=== PATIENT | female | born 1955 | race Caucasian/White ===

== ENCOUNTER 2019-05-23 18:01 | Emergency (ER) | payer MEDICAID ==
--- NOTE | 2019-05-23 18:29 | EDM.PDOC ---
ED HPI GENERAL MEDICAL PROBLEM - General Chief Complaint: Back Pain or Injury Stated Complaint: BACK PAIN Time Seen by Provider: 05/23/19 18:12 - History of Present Illness INITIAL COMMENTS - FREE TEXT/NARRATIVE: HISTORY AND PHYSICAL: History of present illness: Asians a 63-year-old female history chronic back pain presents for medication refill she is requesting gabapentin and hydrocodone. There's been no numbness weakness incontinence or retention of bowel or bladder other complaints Review of systems: As per history of present illness and below otherwise all systems reviewed and negative. Past medical history: As per history of present illness and as reviewed below otherwise noncontributory. Surgical history: As per history of present illness and as reviewed below otherwise noncontributory. Social history: No reported history of drug or alcohol abuse. Family history: As per history of present illness and as reviewed below otherwise noncontributory. Physical exam: HEENT: Atraumatic, normocephalic, pupils reactive, negative for conjunctival pallor or scleral icterus, mucous membranes moist, throat clear, neck supple, nontender, trachea midline. Lungs: Clear to auscultation, breath sounds equal bilaterally, chest nontender. Heart: S1S2, regular, negative for clicks, rubs, or JVD. Abdomen: Soft, nondistended, nontender. Negative for masses or hepatosplenomegaly. Negative for costovertebral tenderness. Pelvis: Stable nontender. Genitourinary: Deferred. Rectal: Deferred. Extremities: Atraumatic, negative for cords or calf pain. Neurovascular unremarkable. Neuro: Awake, alert, oriented. Cranial nerves II through XII unremarkable. Cerebellum unremarkable. Motor and sensory unremarkable throughout. Exam nonfocal. Back patient is some mild paravertebral tenderness at the level lumbar spine no vertebral body or point tenderness she also has tenderness over the sciatic notch on the right. She can stand on her toes back on her heels motor sensory and deep tendon reflexes are normal Diagnostics: None Therapeutics: None Impression: #1 chronic back pain #2 sciatica Definitive disposition and diagnosis as appropriate pending reevaluation and review of above. low back Pain Score (Numeric/FACES): 8 - Related Data Allergies Allergy/AdvReac Type Severity Reaction Status Date / Time epinephrine Allergy Chest Pain Verified 05/23/19 18:15 NSAIDS (Non-Steroidal Allergy Cannot Verified 05/23/19 18:15 Anti-Inflamma Remember promethazine HCl Allergy Cannot Verified 05/23/19 18:15 [From Phenergan] Remember Sulfa (Sulfonamide Allergy Cannot Verified 05/23/19 18:15 Antibiotics) Remember venom-honey bee Allergy Cannot Verified 05/23/19 18:15 [bee venom (honey bee)] Remember Home Meds: Home Meds Albuterol Sulfate [Proair Respiclick] 2 puff INH Q6HR PRN 05/23/19 [History] Estradiol 1 mg PO DAILY 05/23/19 [History] Fluticasone/Salmeterol [Advair 250-50] 1 puff INH BID 05/23/19 [History] Gabapentin [Neurontin] 1 tab PO TID 05/23/19 [History] Hydrocodone/Acetaminophen [[place] 7.5-325 Tablet] 1 tab PO Q8HR 05/23/19 [History ] Pantoprazole Sodium [Protonix] 40 mg PO DAILY 05/23/19 [History] raNITIdine HCl [Zantac] 2 tab PO BEDTIME 05/23/19 [History] Past Medical History Gastrointestinal History: Reports: GERD [employer] OFF[employer]ER History: Reports: - Past Surgical History HEENT Surgical History: Reports: Tonsillectomy Female Surgical History: Reports: Hysterectomy, Salpingo-Oophorectomy Musculoskeletal Surgical History: Reports: Arthroscopic Knee, Other (See Below) Other Musculoskeletal Surgeries/Procedures:: toe sx Social & Family History - Family History Family Medical History: Noncontributory - Tobacco Use Smoking Status *Q: Current Every Day Smoker Years of Tobacco use: 35 Packs/Tins Daily: 1 - Recreational Drug Use Recreational Drug Use: No ED ROS GENERAL - Review of Systems Review Of Systems: Comprehensive ROS is negative, except as noted in HPI. ED EXAM, GENERAL - Physical Exam Exam: See Below (See dictation) Course - Vital Signs Last Recorded V/S: Last Vital Signs Temp 36.2 C 05/23/19 18:14 Pulse 87 05/23/19 18:14 Resp 18 05/23/19 18:14 BP 154/84 H 05/23/19 18:14 Pulse Ox 96 05/23/19 18:14 Departure - Departure Time of Disposition: 18:27 Disposition: Home, Self-Care 01 Condition: Good Clinical Impression: Chronic back pain, Sciatica - Discharge Information Referrals: PCP,Not In Area [Primary Care Provider] - Additional Instructions: The following information is given to patients seen in the emergency department who are being discharged to home. This information is to outline your options for follow-up care. We provide all patients seen in our emergency department with a follow-up referral. The need for follow-up, as well as the timing and circumstances, are variable depending upon the specifics of your emergency department visit. If you don't have a primary care physician on staff, we will provide you with a referral. We always advise you to contact your personal physician following an emergency department visit to inform them of the circumstance of the visit and for follow-up with them and/or the need for any referrals to a consulting specialist. The emergency department will also refer you to a specialist when appropriate. This referral assures that you have the opportunity for followup care with a specialist. All of these measure are taken in an effort to provide you with optimal care, which includes your followup. Under all circumstances we always encourage you to contact your private physician who remains a resource for coordinating your care. When calling for followup care, please make the office aware that this follow-up is from your recent emergency room visit. If for any reason you are refused follow-up, please contact the [facility] emergency department at and asked to speak to the emergency department charge nurse. ultram/Medrol was prescribed follow-up primary medical doctor return as needed as discussed Sepsis Event Note - Evaluation Sepsis Screening Result: No Definite Risk - Focused Exam Vital Signs: Vital Signs Temp Pulse Resp BP Pulse Ox 05/23/19 18:14 36.2 C 87 18 154/84 H 96 Date Exam was Performed: 05/23/19 Time Exam was Performed: 18:23
== END 2019-05-23 18:45 | disposition home or self-care (01) ==
LOC: MW.ED 18:01
DX: M54.41 Lumbago with sciatica, right side (principal); K21.9 Gastro-esophageal reflux disease without esophagitis; F17.210 Nicotine dependence, cigarettes, uncomplicated; Z88.8 Allergy status to other drugs, medicaments and biological substances; Z88.2 Allergy status to sulfonamides; Z91.030 Bee allergy status; Z79.899 Other long term (current) drug therapy
CPT/HCPCS: 99282; 99283

== ENCOUNTER 2019-07-18 14:38 | Emergency (ER) | payer MEDICAID ==
--- NOTE | 2019-07-18 15:08 | EDM.PDOC ---
ED HPI GENERAL MEDICAL PROBLEM - General Chief Complaint: General Stated Complaint: TOOTH INFECTION Time Seen by Provider: 07/18/19 14:57 - History of Present Illness INITIAL COMMENTS - FREE TEXT/NARRATIVE: HISTORY AND PHYSICAL: History of present illness: Patient is a 63-year-old female presents with a concern of medical screening exam for dental pain with multiple dental caries with scheduled dental appointment tomorrow. There is been no fever chills nausea vomiting or other complaints Review of systems: As per history of present illness and below otherwise all systems reviewed and negative. Past medical history: As per history of present illness and as reviewed below otherwise noncontributory. Surgical history: As per history of present illness and as reviewed below otherwise noncontributory. Social history: No reported history of drug or alcohol abuse. Family history: As per history of present illness and as reviewed below otherwise noncontributory. Physical exam: HEENT: Atraumatic, normocephalic, pupils reactive, negative for conjunctival pallor or scleral icterus, mucous membranes moist, throat clear, neck supple, nontender, trachea midline. Generally poor dentition with multiple dental caries noted Lungs: Clear to auscultation, breath sounds equal bilaterally, chest nontender. Heart: S1S2, regular, negative for clicks, rubs, or JVD. Abdomen: Soft, nondistended, nontender. Negative for masses or hepatosplenomegaly. Negative for costovertebral tenderness. Pelvis: Stable nontender. Genitourinary: Deferred. Rectal: Deferred. Extremities: Atraumatic, negative for cords or calf pain. Neurovascular unremarkable. Neuro: Awake, alert, oriented. Cranial nerves II through XII unremarkable. Cerebellum unremarkable. Motor and sensory unremarkable throughout. Exam nonfocal. Diagnostics: None Therapeutics: None Impression: #1 dentalgia #2 dental caries rule out dental abscess #3 medical screening exam Definitive disposition and diagnosis as appropriate pending reevaluation and review of above. - Related Data Allergies Allergy/AdvReac Type Severity Reaction Status Date / Time epinephrine Allergy Chest Pain Verified 05/23/19 18:15 NSAIDS (Non-Steroidal Allergy Cannot Verified 05/23/19 18:15 Anti-Inflamma Remember promethazine HCl Allergy Cannot Verified 05/23/19 18:15 [From Phenergan] Remember Sulfa (Sulfonamide Allergy Cannot Verified 05/23/19 18:15 Antibiotics) Remember venom-honey bee Allergy Cannot Verified 12/11/19 18:15 [bee venom (honey bee)] Remember Home Meds: Home Meds Albuterol Sulfate [Proair Respiclick] 2 puff INH Q6HR PRN 05/23/19 [History] Fluticasone/Salmeterol [Advair 250-50] 1 puff INH BID 05/23/19 [History] Gabapentin [Neurontin] 1 tab PO TID 05/23/19 [History] Hydrocodone/Acetaminophen [[place] 7.5-325 Tablet] 1 tab PO Q8HR 05/23/19 [History ] Pantoprazole Sodium [Protonix] 40 mg PO DAILY 05/23/19 [History] estradioL [Estradiol] 1 mg PO DAILY 05/23/19 [History] raNITIdine HCl [Zantac] 2 tab PO BEDTIME 05/23/19 [History] Past Medical History Gastrointestinal History: Reports: GERD [employer] History: Reports: - Past Surgical History HEENT Surgical History: Reports: Tonsillectomy Female Surgical History: Reports: Hysterectomy, Salpingo-Oophorectomy Musculoskeletal Surgical History: Reports: Arthroscopic Knee, Other (See Below) Other Musculoskeletal Surgeries/Procedures:: toe sx Social & Family History - Family History Family Medical History: Noncontributory ED ROS GENERAL - Review of Systems Review Of Systems: Comprehensive ROS is negative, except as noted in HPI. ED EXAM, GENERAL - Physical Exam Exam: See Below (See dictation) Departure - Departure Time of Disposition: 15:07 Disposition: Home, Self-Care 01 Condition: Good Clinical Impression: Dentalgia - Discharge Information Referrals: PCP,Not In Area [Primary Care Provider] - Additional Instructions: The following information is given to patients seen in the emergency department who are being discharged to home. This information is to outline your options for follow-up care. We provide all patients seen in our emergency department with a follow-up referral. The need for follow-up, as well as the timing and circumstances, are variable depending upon the specifics of your emergency department visit. If you don't have a primary care physician on staff, we will provide you with a referral. We always advise you to contact your personal physician following an emergency department visit to inform them of the circumstance of the visit and for follow-up with them and/or the need for any referrals to a consulting specialist. The emergency department will also refer you to a specialist when appropriate. This referral assures that you have the opportunity for followup care with a specialist. All of these measure are taken in an effort to provide you with optimal care, which includes your followup. Under all circumstances we always encourage you to contact your private physician who remains a resource for coordinating your care. When calling for followup care, please make the office aware that this follow-up is from your recent emergency room visit. If for any reason you are refused follow-up, please contact the [facility] emergency department at and asked to speak to the emergency department charge nurse. Augmentin as prescribed follow-up dentist as discussed return as needed as discussed
== END 2019-07-18 15:28 | disposition home or self-care (01) ==
LOC: MW.ED 14:38
DX: K02.9 Dental caries, unspecified (principal); Z88.6 Allergy status to analgesic agent; Z88.2 Allergy status to sulfonamides; Z91.030 Bee allergy status; Z88.8 Allergy status to other drugs, medicaments and biological substances
CPT/HCPCS: 99282